=== PATIENT | male | born 1990 ===

== ENCOUNTER 2019-06-24 22:27 | Emergency (ER) | payer BC, OTHER ==
[2019-06-24 22:55] VITALS: BP 131/84; PULSE 110
[2019-06-24] MEDS ORDERED: FLU Vacc QS2019-20(6MOS+)/PF 60 MCG/0.5 ML SYRINGE IM ONE (23:00)
--- NOTE | 2019-06-24 23:02 | EDM.PDOC ---
ED HPI GENERAL MEDICAL PROBLEM - General Chief Complaint: Fever Stated Complaint: sent by dr hickman for testing Time Seen by Provider: 06/24/19 22:38 Source of Information: Reports: Patient History Limitations: Reports: No Limitations - History of Present Illness INITIAL COMMENTS - FREE TEXT/NARRATIVE: Mr. Garcia is a very pleasant 29-year-old man with a past medical history significant for type 1 diabetes and WPW, status post a cardiac ablation, who states that he has had 2 days of a slight cough, possibly worse today, but no dyspnea. He states that he was feeling well until around 16:00 to 17:00 this afternoon, when he developed a fever, with a T-max of 102 degrees at 21:20. He states that he took a warm shower, then went to bed, however, the patient's encouraged him to come to the ED to be evaluated. The patient did not take any Tylenol or ibuprofen. The patient's is approximately 29 weeks gestation. She was diagnosed with streptococcal pharyngitis on 06/21/2019, and is being treated with amoxicillin. A COVID-19 test at that time returned negative. She has been quarantining at her parent's residence, but returned home today. She wanted the patient to come to the ED to be tested for COVID-19. Here in the ED, the patient is found to be tachycardic at 110 bpm, otherwise, he is hemodynamically stable, afebrile, saturating 99 to 100% on room air. Other than the above symptoms, the patient denies recent chills, sore throat, ear pain, nasal or sinus congestion, dyspnea, chest pain, palpitations, nausea, vomiting, constipation, diarrhea, abdominal pain, urinary symptoms, recent weight gain or weight loss, recent bloody bowel movements or black bowel movements, recent joint aches, headaches, or rashes. The patient's PCP is Janine Cobb NP. His hematology nurse educator is Liz Acosta RN. He did not receive an influenza vaccine this season, but agreed to receive one here today. Throat Pain Score (Numeric/FACES): 4 - Related Data Allergies Allergy/AdvReac Type Severity Reaction Status Date / Time No Known Allergies Allergy Verified 06/24/19 22:55 Home Meds: Home Meds Humalog Insulin Pump. 14 units SUBCUT ASDIRECTED 10/29/13 [History] Losartan Potassium 25 mg PO DAILY 03/02/16 [History] Past Medical History Cardiovascular History: Reports: Arrhythmia (WPW, s/p ablation) Endocrine/Metabolic History: Reports: Diabetes, Type I - Past Surgical History HEENT Surgical History: Reports: Oral Surgery (wisdom teeth extraction) Cardiovascular Surgical History: Reports: Cardiac Ablation (for WPW) Social & Family History - Tobacco Use Smoking Status *Q: Never Smoker Tobacco Use Within Last Twelve Months: Smokeless Tobacco (Chews 1 can/week x 2010) - Caffeine Use Caffeine Use: Reports: None - Alcohol Use Alcohol Use History: Yes Alcohol Use Frequency: Socially - Recreational Drug Use Recreational Drug Use: No - Living Situation & Occupation Living situation: Reports: , with Spouse Occupation: Employed (Construction) ED ROS GENERAL - Review of Systems Review Of Systems: Comprehensive ROS is negative, except as noted in HPI. ED EXAM, GENERAL - Physical Exam Exam: See Below Exam Limited By: No Limitations General Appearance: Alert, WD/WN, No Apparent Distress Eye Exam: Bilateral Eye: EOMI, Normal Inspection Ears: Normal External Exam, Normal Canal, Hearing Grossly Normal, Normal TMs Nose: Normal Inspection, Normal Mucosa, No Blood Throat/Mouth: Normal Inspection, Normal Lips, Normal Teeth, Normal Gums, Normal Oropharynx, Normal Voice, No Airway Compromise Head: Atraumatic, Normocephalic Neck: Normal Inspection, Supple, Non-Tender, Full Range of Motion. No: Lymphadenopathy (L), Lymphadenopathy (R) Respiratory/Chest: No Respiratory Distress, Lungs Clear, Normal Breath Sounds, No Accessory Muscle Use Cardiovascular: Normal Peripheral Pulses, Regular Rate, Rhythm, No Edema, No Gallop, No JVD, No Murmur, No Rub Peripheral Pulses: 4+: Radial (L), Radial (R) GI/Abdominal: Normal Bowel Sounds, Soft, Non-Tender, No Organomegaly, No Distention, No Abnormal Bruit, No Mass (Male) Exam: Deferred Rectal (Males) Exam: Deferred Back Exam: Normal Inspection, Full Range of Motion, NT Extremities: Normal Inspection, Normal Range of Motion, No Pedal Edema, Normal Capillary Refill Neurological: Alert, Oriented, Normal Cognition, Normal Gait, No Motor/Sensory Deficits Psychiatric: Normal Affect Skin Exam: Warm, Dry, Intact, Normal Color, No Rash Course - Vital Signs Last Recorded V/S: Last Vital Signs Temp 37.9 C 06/24/19 22:35 Pulse 110 H 06/24/19 22:35 Resp 20 06/24/19 22:35 BP 131/84 06/24/19 22:35 Pulse Ox 99 06/24/19 22:35 - Orders/Labs/Meds Orders: Active Orders 24 hr Category Date Time Status Influenza Vaccine Charge [RC] .DISCHARGE Care 06/24/19 22:55 Active Chest 2V [CR] Stat Exams 06/24/19 22:55 Taken CORONAVIRUS COVID-19 PCR PHL [MREF] Stat Lab 06/24/19 23:50 Received CULTURE STREP A CONFIRMATION [] Stat Lab 06/24/19 22:54 Results STREP SCRN A RAPID W CULT CONF [] Stat Lab 06/24/19 22:54 Results Meds: Medications Discontinued Medications Generic Name Dose Route Start Last Admin Trade Name Freq PRN Reason Stop Dose Admin Influenza Virus Vaccine 1 each 06/24/19 22:55 Pharmacy To Dose - Influenza Vaccine IM 06/24/19 22:56 ONETIME ONE Influenza Virus Vaccine 60 mcg 06/24/19 23:00 06/24/19 23:18 Fluzone Quad [id number] Syringe IM 06/24/19 23:01 60 mcg .ONCE ONE Administration - Re-Assessments/Exams Free Text/Narrative Re-Assessment/Exam: 06/24/19 22:56 As above, the patient has had a slight cough for the past 2 days, and a fever this evening, although without treatment, he is afebrile here in the ED. His oxygen saturation is 99 to 100%, he denies having dyspnea, and his lungs are entirely clear to auscultation bilaterally. While we cannot say with certainty today that he is not infected with the SARS-CoV-2 virus, we can say that he does not have COVID-19 severe enough to require hospitalization, since hypoxemia is the primary reason for hospitalization. Because his was recently diagnosed with streptococcal pharyngitis, I have ordered a rapid strep test, even though the patient denies having a sore throat. Because of his recent fever and slight cough, I ordered a chest x-ray, although I am not expecting to find bilateral hazy infiltrates. If, by chance, the patient does have bilateral hazy infiltrates, I will then order blood work to evaluate for lab findings consistent with COVID-19, however, in the absence of bilateral hazy infiltrates, those lab tests would be uninterpretable. 06/24/19 23:35 Two-view chest radiograph appears to be grossly normal. The cardiac silhouette is within normal limits. No pulmonary vascular congestion. No pleural effusions. No focal infiltrate. No pneumothorax. Formal read per the Radiologist pending. The patient's rapid strep test returned negative. 06/24/19 23:40 Test results discussed with the patient. As above, with a negative chest x-ray and no hypoxemia, he does not have significant COVID-19 disease, even if he is infected. I have been informed, however, that the state has relaxed its restrictions on who can be tested. From a epidemiologic standpoint, there is value in mass-testing, to help identify asymptomatic patients, therefore I recommended that we test this patient. He agreed. I explained that the sensitivity of this test is 60 to 70%, meaning that even if he is told in the next day or two that his test is negative, there is still a 30 to 40% chance that he is positive, therefore he should continue to socially isolate. The patient expressed understanding. Departure - Departure Time of Disposition: 23:43 Disposition: Home, Self-Care 01 Condition: Good Clinical Impression: Cough, Fever - Discharge Information *PRESCRIPTION DRUG MONITORING PROGRAM REVIEWED*: Not Applicable *COPY OF PRESCRIPTION DRUG MONITORING REPORT IN PATIENT MIKE: Not Applicable Instructions: Fever, Adult, Cough, Adult, [id number] Referrals: Janine Cobb NP [Ordering Only Provider] - Forms: ED Department Discharge Additional Instructions: You were seen in the emergency room for 2 days of a slight cough, and a fever earlier tonight. Work-up in the ER included a rapid strep test, a chest x-ray, and a swab for the virus that causes COVID-19. Your rapid strep test returned negative, and your chest x-ray is normal. You do not have strep throat or pneumonia. You will be contacted with your COVID-19 test results within the next day or two. Be aware that the sensitivity of the test is 60 to 70%, meaning that even with a negative test, there is a 30 to 40% chance that you could be positive. For this reason, we recommend that you continue to socially isolate and wear a mask whenever you are in a closed space with strangers, such as when grocery shopping. If any other problems, please do not hesitate to return to the ER. Sepsis Event Note - Evaluation Sepsis Screening Result: No Definite Risk - Focused Exam Vital Signs: Vital Signs Temp Pulse Resp BP Pulse Ox 06/24/19 22:35 37.9 C 110 H 20 131/84 99 Date Exam was Performed: 06/25/19 Time Exam was Performed: 00:11 - My Orders Last 24 Hours: My Active Orders 06/24/19 22:54 CULTURE STREP A CONFIRMATION [RM] Stat STREP SCRN A RAPID W CULT CONF [RM] Stat 06/24/19 22:55 Influenza Vaccine Charge [RC] .DISCHARGE Chest 2V [CR] Stat 06/24/19 23:50 CORONAVIRUS COVID-19 PCR PHL [MREF] Stat - Assessment/Plan Last 24 Hours: My Active Orders 06/24/19 22:54 CULTURE STREP A CONFIRMATION [RM] Stat STREP SCRN A RAPID W CULT CONF [RM] Stat 06/24/19 22:55 Influenza Vaccine Charge [RC] .DISCHARGE Chest 2V [CR] Stat 06/24/19 23:50 CORONAVIRUS COVID-19 PCR PHL [MREF] Stat
--- NOTE | 2019-06-25 09:40 | CR ---
Chest: 2 views of the chest were obtained. Comparison: Previous chest x-ray of 03/02/60. Heart size and mediastinum are normal. Lungs are clear with no acute parenchymal change. Bony structures are unremarkable. Impression: 1. Nothing acute is appreciated on 2 view chest x-ray. Diagnostic code #1 This report was dictated in MDT
== END 2019-06-25 00:03 | disposition home or self-care (01) ==
LOC: JD.ED 22:27
DX: R05 Cough (principal); R50.9 Fever, unspecified; E10.9 Type 1 diabetes mellitus without complications; Z23 Encounter for immunization; F17.220 Nicotine dependence, chewing tobacco, uncomplicated; Z20.828 Contact with and (suspected) exposure to other viral communicable diseases
CPT/HCPCS: 71046; 71046-26; 87081; 87430; 90686; 99282; 99283-25; G0008; U0002